=== PATIENT | female | born 2000 | race Caucasian/White ===

== ENCOUNTER 2022-03-16 19:17 | Emergency (ER) | payer OTHER ==
[~2022-03-16] VITALS: Ht 155 cm; Wt 59.0 kg
[2022-03-16] MEDS ORDERED: TETANUS,DIPTH,PERTUSS P/F (BOOSTRIX) 0.5 ML VIAL IM ONE (19:30)
--- NOTE | 2022-03-16 20:01 | ED Upper Extremity ---
General Chief Complaint: Laceration Stated Complaint: LT HAND LAC,BLEEDING Nursing Triage Note: 1CM LACERATION TO LEFT MEDIAL HAND FROM EXACTO KNIFE APPROX. 1900. UNKNOWN LAST TETANUS SHOT. (CLINTON YOUNG APRN) History of Present Illness Date Seen by Provider: Mar 16, 2022 Time Seen by Provider: 19:25 Initial Comments Patient is a previous healthy 21-year-old female who presents to the emergency department for evaluation of a laceration to her left hand that occurred when an [employer] knife she was using at work slipped causing her to cut her self. She states there was brisk bleeding that was controlled with direct pressure. Patient states the X-Acto blade was intact upon removal from the wound. She denies any other injury. She is unsure the date of her last tetanus immunization. She states she has full range of motion and sensation in all the digits of her left hand. (CLINTON YOUNG APRN) Allergies and Home Medications Allergies Coded Allergies: No Known Drug Allergies (Unverified , 03/16/22) Patient Home Medication List Home Medication List Reviewed: Yes (CLINTON YOUNG APRN) No Active Prescriptions or Reported Meds Review of Systems Constitutional: no symptoms reported EENTM: no symptoms reported Respiratory: no symptoms reported Cardiovascular: no symptoms reported Gastrointestinal: no symptoms reported Musculoskeletal: no symptoms reported Skin: see HPI (CLINTON YOUNG APRN) Past Bxcigim-Wcjfrx-Hcucfo Hx Patient Social History Tobacco Use?: No Substance use?: No Alcohol Use?: Yes Alcohol Frequency: Once in a while Pt feels they are or have been: No (CLINTON YOUNG APRN) Immunizations Up To Date First/Initial COVID19 Vaccinat: NA (CLINTON YOUNG APRN) Past Medical History Surgery/Hospitalization HX: DENIES (CLINTON YOUNG APRN) Physical Exam Vital Signs Vital Signs - First Documented 03/16/22 19:21 Temp 36.2 Pulse 88 Resp 16 B/P (MAP) 125/68 (87) Pulse Ox 100 O2 Delivery Room Air (GASTON MEDINA DO) Vital Signs Capillary Refill : Less Than 3 Seconds (CLINTON YOUNG APRN) Height, Weight, BMI Height: '" Weight: lbs. oz. kg; 24.00 BMI Method: General Appearance: WD/WN, no apparent distress HEENT: PERRL/EOMI, normal ENT inspection, TMs normal, pharynx normal Neck: non-tender, full range of motion, supple Cardiovascular: regular rate, rhythm Respiratory: chest non-tender, lungs clear, normal breath sounds Gastrointestinal: non tender, soft Neurologic/Psychiatric: no motor/sensory deficits, alert, normal mood/affect, oriented x 3 Skin: normal color, warm/dry 1 cm laceration noted to the dorsal aspect of the left thenar tissue; there is some brisk venous bleeding noted from the wound; patient has full range of motion and sensation of all digits of the left hand without any evidence of significant tendon dysfunction (CLINTON YOUNG TITLE EXAMINER) Procedures/Interventions Wound Location: Upper Extremities Other Wound Location Dorsal aspect of left thenar tissue Wound Length (cm): 1 Wound's Depth, Shape: superficial Wound Explored: no foreign body removed Irrigated w/ Saline (ccs): 50 Anesthesia: 1% Lidocaine Volume Anesthetic (ccs): 3 Suture: Prolene Suture Size: 5-0 Number of Sutures: 4 Layer Closure?: 1 Number Deep Layer Sutures: 0 Sterile Dressing Applied?: Yes (CLINTON YOUNG APRN) Progress/Results/Core Measures Results/Orders Medications Given in ED Current Medications Medications Dose Ordered Sig/Mehreen Route Start Time Stop Time Status Last Admin Dose Admin Diphtheria/ Tetanus/Acell Pertussis 0.5 ml ONCE ONCE IM 03/16/22 19:30 03/16/22 19:31 DC 03/16/22 20:08 0.5 ML Lidocaine HCl 20 ml ONCE ONCE INJ 03/16/22 20:30 03/16/22 20:31 DC 03/16/22 20:33 20 ML (GASTON MEDINA DO) Vital Signs/I&O 03/16/22 03/16/22 19:21 21:54 Temp 36.2 Pulse 88 Resp 16 B/P (MAP) 125/68 (87) 124/74 Pulse Ox 100 O2 Delivery Room Air (GASTON MEDINA DO) Blood Pressure Mean: 87 Progress Progress Note : Progress Note Patient is nontoxic and well-hydrated on exam. No evidence of a foreign body to the wound on exam or palpation. There is some brisk venous bleeding noted from the wound. This was controlled with direct pressure. No evidence of any extensor or flexor tendon dysfunction. No neurovascular deficits noted to the digits of the left hand. Wound was anesthetized with lidocaine 1% and 4 sutures were placed as noted separately. Large bites of tissue were taken on both sides of the wound to help tamponade the venous bleeding. Patient became pale and slightly diaphoretic towards the end of the procedure and had a brief episode of syncope. This was obviously vasovagal and she regained consciousness a few seconds later. Patient was laid supine and stated she felt much better. Patient was given a drink and she tolerated this without issue. Discussed wound care including continued use of a pressure dressing until the morning when it can be removed. Sutures need to be removed in approximately 7 days. Return precautions for urgent symptomology discussed. Patient verbalized understanding. Tetanus was updated. (CLINTON YOUNG APRN) Departure Impression Primary Impression: Laceration of left hand Qualified Codes: S61.412A - Laceration without foreign body of left hand, initial encounter Disposition: HOME, SELF-CARE Condition: Improved Departure-Patient Inst. Decision time for Depature: 21:45 (CLINTON YOUNG APRN) Referrals: NO,LOCAL PHYSICIAN (PCP/Family) Primary Care Physician Patient Instructions: Laceration Repair With Stitches ED Scripts No Active Prescriptions or Reported Meds Work/School Note: Work Release Form Date Seen in the Emergency Department: Mar 16, 2022 Return to Work: Mar 18, 2022 ATTENDING PHYSICIAN NOTE: I WAS PHYSICALLY PRESENT ER PHYSICIAN, BUT I WAS NOT INVOLVED IN ANY DECISION MAKING OR ANY CARE OF THIS PATIENT, AND I AM NOT COLLABORATING PHYSICIAN. (GASTON MEDINA DO) CLINTON YOUNG APRN Mar 16, 2022 20:01 GASTON MEDINA DO Mar 17, 2022 06:50
[2022-03-16] MEDS ORDERED: LIDOCAINE/EPI 2% 1:100,00 (XYLOCAINE) 20 ML VIAL INJ ONE (20:15)
[2022-03-16] MEDS ORDERED: LIDOCAINE 1% INJ 20 ML VIAL INJ ONE (20:30)
[2022-03-16 21:54] VITALS: BP 124/74
== END 2022-03-16 21:55 | disposition home or self-care (01) ==
LOC: ER 19:20
DX: S61.412A Laceration without foreign body of left hand, initial encounter (principal); Z28.310 Unvaccinated for COVID-19; Z23 Encounter for immunization; W26.0XXA Contact with knife, initial encounter; Y92.59 Other trade areas as the place of occurrence of the external cause; Y99.0 Civilian activity done for income or pay
CPT/HCPCS: 90715

== ENCOUNTER 2022-03-26 10:17 | Emergency (ER) | payer OTHER ==
[~2022-03-26] VITALS: Ht 175.2 cm; Wt 59.0 kg
[2022-03-26 10:25] VITALS: BP 108/74
== END 2022-03-26 10:25 | disposition home or self-care (01) ==
LOC: EDUNIT# 10:17 → ER 10:19
DX: S61.412D Laceration without foreign body of left hand, subsequent encounter (principal); X58.XXXD Exposure to other specified factors, subsequent encounter